=== PATIENT | male | born 1955 | race Caucasian/White ===

== ENCOUNTER 2022-05-25 17:06 | Inpatient (IN) | payer BC ==
[~2022-05-25] VITALS: Ht 195.6 cm; Wt 120.7 kg
[2022-05-25 17:45] VITALS: BP_SYST 154
[2022-05-25] MEDS ORDERED: KETOROLAC TROMETHAMINE 30 MG VIAL IVP ONE (18:30)
[2022-05-25] MEDS ORDERED: guaiFENesin/DEXTROMETHORPHAN 10 ML UDC PO ONE (18:30)
[2022-05-25] MEDS ORDERED: NACL 0.9% 1,000 ML IV ONE ×2 (18:30→21:15)
[2022-05-25] MEDS ORDERED: DEXAMETHASONE SOD PHOSPHATE 10 MG/ML VIAL IVP ONE (18:30)
[2022-05-25 19:09] LABS: BASOPHILS % (AUTO) 0.4 % (0.0-2.0); EOSINOPHILS % (AUTO) 0.1 % (0.0-4.0); HEMATOCRIT 52.4 % (36-54); HEMOGLOBIN 17.7 g/dL (14.0-18.0); LYMPHOCYTES # (AUTO) 0.8 K/uL (1.0-5.5); LYMPHOCYTES % (AUTO) 15.9 % (20.5-51.5); MEAN CORPUSCULAR HEMOGLOBIN 37 pg (27-31); MEAN CORPUSCULAR HGB CONC 34 % (32-36); MEAN CORPUSCULAR VOLUME 110 fL (79.0-98.0); MONOCYTES # (AUTO) 0.6 K/uL (0.0-1.0); MONOCYTES % (AUTO) 12.2 % (1.7-9.3); NEUTROPHILS # (AUTO) 3.4 K/uL (1.8-7.7); NEUTROPHILS % (AUTO) 71.4 % (40.0-70.0); RED BLOOD CELL COUNT(AUTO) 4.79 MIL/uL (4.2-6.2); RED CELL DISTRIBUTION WIDTH 14.1 % (9.0-15.0); WHITE BLOOD COUNT (AUTO) 4.8 K/uL (4.8-10.8)
[2022-05-25 19:18] LABS: ANION GAP 10 (5-15); CALCIUM 9.2 mg/dL (8.4-11.0); CHLORIDE 100 mmol/L (98-107); CREATININE 0.91 mg/dL (0.55-1.30); GLUCOSE 159 mg/dL (70-99); UREA NITROGEN, BLOOD 20 mg/dL (8-21)
[2022-05-25 19:27] LABS: ALANINE AMINOTRANSFERASE 29 U/L (12-78); ALBUMIN 3.9 g/dL (3.4-4.8); ASPARTATE AMINOTRANSFERASE 28 U/L (10-37); PLATELET COUNT (AUTO) 94 K/uL (130-430); TOTAL BILIRUBIN 2.3 mg/dL (0.0-1.0)
[2022-05-25 19:28] LABS: GFR AFRICAN AMERICAN 107 mL/min (>90)
[2022-05-25] MEDS ORDERED: AZITHROMYCIN 500 MG in NS 250 ML IV ONE (21:00)
[2022-05-25] MEDS ORDERED: cefTRIAXone 1 GM in D5W 50 ML IV ONE (21:00)
[2022-05-25] MEDS ORDERED: cefTRIAXone 1 GM VIAL ONE (21:17)
[2022-05-25] MEDS ORDERED: AZITHROMYCIN 500 MG/VIAL (ZITHROMAX) IV ONE (21:17)
[2022-05-25] MEDS ORDERED: DEXAMETHASONE SOD PHOSPHATE 10 MG/ML VIAL ONE (21:17)
[2022-05-25] MEDS ORDERED: KETOROLAC TROMETHAMINE 30 MG VIAL ONE (21:18)
[2022-05-25] MEDS ORDERED: guaiFENesin/DEXTROMETHORPHAN 10 ML UDC ONE (21:34)
[2022-05-25] MEDS ORDERED: LORazepam 2 MG/ML VIAL IVP PRN (23:45)
[2022-05-25] MEDS ORDERED: HYDROcodone/ACETAMIN 10-325 MG TAB PO PRN (23:45)
[2022-05-25] MEDS ORDERED: ACETAMINOPHEN 325 MG TABLET PO PRN (23:45)
[2022-05-25] MEDS ORDERED: NALOXONE HCL 0.4 MG/ML AMP (NARCAN) IVP PRN ×2 (23:45)
[2022-05-25] MEDS ORDERED: ONDANSETRON HCL 4 MG/2 ML VIAL IVP PRN (23:45)
[2022-05-25] MEDS ORDERED: HYDROcodone/ACETAMIN 5-325 MG TAB (NORCO/ VICODIN) PO PRN (23:45)
[2022-05-25 23:50] VITALS: BP_SYST 146
[2022-05-26] MEDS: ALBUTEROL SULFATE 0.083% 2.5 MG/3 ML VIAL.NEB INH SCH ×6 (03:26→23:00)
[2022-05-26] MEDS: IPRATROPIUM BROM 0.5 MG/2.5 ML VIAL.NEB (ATROVENT) INH SCH ×6 (03:27→23:00)
[2022-05-26 05:20] VITALS: BP_SYST 144
[2022-05-26] MEDS ORDERED: NORMAL SALINE 5 ML DISP.SYRIN IVF SCH (06:00)
[2022-05-26] MEDS: NORMAL SALINE 5 ML DISP.SYRIN IVF SCH ×3 (06:00→20:58)
[2022-05-26 08:00] VITALS: BP_SYST 144
[2022-05-26 08:11] LABS: BASOPHILS % (AUTO) 0.2 % (0.0-2.0); HEMATOCRIT 48.4 % (36-54); HEMOGLOBIN 16.3 g/dL (14.0-18.0); LYMPHOCYTES # (AUTO) 0.4 K/uL (1.0-5.5); LYMPHOCYTES % (AUTO) 14.7 % (20.5-51.5); MEAN CORPUSCULAR HEMOGLOBIN 37 pg (27-31); MEAN CORPUSCULAR HGB CONC 34 % (32-36); MEAN CORPUSCULAR VOLUME 111 fL (79.0-98.0); MONOCYTES # (AUTO) 0.1 K/uL (0.0-1.0); MONOCYTES % (AUTO) 3.9 % (1.7-9.3); NEUTROPHILS # (AUTO) 2.1 K/uL (1.8-7.7); NEUTROPHILS % (AUTO) 81.2 % (40.0-70.0); PLATELET COUNT (AUTO) 86 K/uL (130-430); RED BLOOD CELL COUNT(AUTO) 4.38 MIL/uL (4.2-6.2); WHITE BLOOD COUNT (AUTO) 2.6 K/uL (4.8-10.8)
[2022-05-26 08:31] LABS: CALCIUM 8.6 mg/dL (8.4-11.0); CREATININE 0.64 mg/dL (0.55-1.30); PHOSPHORUS 3.3 mg/dL (2.7-4.5)
[2022-05-26 11:38] VITALS: BP_SYST 140
[2022-05-26] MEDS ORDERED: BUDESONIDE 0.5 MG/2 ML AMPUL.NEB INH ONE (14:00)
[2022-05-26 15:38] VITALS: BP_SYST 124
[2022-05-26] MEDS: BUDESONIDE 0.5 MG/2 ML AMPUL.NEB INH SCH (19:00)
[2022-05-26 20:00] VITALS: BP_SYST 121
[2022-05-26] MEDS: DILTIAZEM HCL 30 MG TABLET PO PRN (20:44)
[2022-05-26] MEDS: cefTRIAXone 1 GM IVPB PREMIX 50 ML IV SCH (20:46)
[2022-05-26] MEDS: INSULIN REGULAR, HUMAN 100 UNITS/ML, 3 ML VIAL (humuLIN R) SUBCUT PRN (20:56)
[2022-05-26] MEDS: methylPREDNISolone SOD SUCC/PF 62.5 MG/ML VIAL IVP SCH (20:57)
[2022-05-26] MEDS: AZITHROMYCIN 500 MG in NS 250 ML IV SCH (21:08)
[2022-05-27 00:31] VITALS: BP_SYST 129
[2022-05-27] MEDS: DILTIAZEM HCL 30 MG TABLET PO PRN ×2 (01:52→08:09)
[2022-05-27] MEDS: ALBUTEROL SULFATE 0.083% 2.5 MG/3 ML VIAL.NEB INH SCH ×7 (03:00→23:05)
[2022-05-27] MEDS: IPRATROPIUM BROM 0.5 MG/2.5 ML VIAL.NEB (ATROVENT) INH SCH ×6 (03:00→23:06)
[2022-05-27] MEDS: NORMAL SALINE 5 ML DISP.SYRIN IVF SCH ×3 (05:40→20:48)
[2022-05-27] MEDS: INSULIN REGULAR, HUMAN 100 UNITS/ML, 3 ML VIAL (humuLIN R) SUBCUT PRN ×4 (05:45→20:51)
[2022-05-27] MEDS: methylPREDNISolone SOD SUCC/PF 62.5 MG/ML VIAL IVP SCH ×2 (05:50→18:25)
[2022-05-27 07:20] LABS: BASOPHILS % (AUTO) 0.1 % (0.0-2.0); HEMATOCRIT 44.3 % (36-54); HEMOGLOBIN 15.1 g/dL (14.0-18.0); LYMPHOCYTES # (AUTO) 0.5 K/uL (1.0-5.5); LYMPHOCYTES % (AUTO) 13.9 % (20.5-51.5); MEAN CORPUSCULAR HEMOGLOBIN 38 pg (27-31); MEAN CORPUSCULAR HGB CONC 34 % (32-36); MEAN CORPUSCULAR VOLUME 110 fL (79.0-98.0); MONOCYTES # (AUTO) 0.2 K/uL (0.0-1.0); MONOCYTES % (AUTO) 4.8 % (1.7-9.3); NEUTROPHILS # (AUTO) 2.7 K/uL (1.8-7.7); NEUTROPHILS % (AUTO) 81.2 % (40.0-70.0); PLATELET COUNT (AUTO) 91 K/uL (130-430); RED BLOOD CELL COUNT(AUTO) 4.02 MIL/uL (4.2-6.2); RED CELL DISTRIBUTION WIDTH 13.6 % (9.0-15.0)
[2022-05-27 07:23] LABS: C-REACTIVE PROTEIN QUANT 3.4 mg/dL (0-0.5); CALCIUM 8.3 mg/dL (8.4-11.0); CREATININE 0.62 mg/dL (0.55-1.30)
[2022-05-27] MEDS: BUDESONIDE 0.5 MG/2 ML AMPUL.NEB INH SCH ×2 (07:32→21:15)
[2022-05-27 07:47] LABS: WHITE BLOOD COUNT (AUTO) 3.4 K/uL (4.8-10.8)
[2022-05-27 07:56] VITALS: BP_SYST 136
[2022-05-27 08:27] LABS: ERYTHROCYTE SEDIMENTATION RATE 18 MM/HR (0-15)
[2022-05-27] MEDS ORDERED: dilTIAZem HCL IVP 5 MG/ML VIAL IVP ONE (11:15)
[2022-05-27 11:23] VITALS: BP_SYST 130
[2022-05-27] MEDS ORDERED: FUROSEMIDE 20 MG/2 ML VIAL IVP ONE (11:30)
[2022-05-27] MEDS ORDERED: METOPROLOL SUCCINATE 50 MG TAB.SR.24H (TOPROL XL) PO ONE (13:00)
[2022-05-27 15:26] VITALS: BP_SYST 141
[2022-05-27] MEDS ORDERED: ISOSORBIDE MONONITRATE 30 MG TAB.ER.24H PO ONE (16:00)
[2022-05-27] MEDS ORDERED: traZODone HCL 50 MG TABLET (DESYREL) PO PRN (19:30)
[2022-05-27 20:00] VITALS: BP_SYST 121
[2022-05-27] MEDS: cefTRIAXone 1 GM IVPB PREMIX 50 ML IV SCH (20:44)
[2022-05-27] MEDS: DILTIAZEM HCL 120 MG CAP.SR.24H PO SCH (20:48)
[2022-05-27] MEDS: AZITHROMYCIN 500 MG in NS 250 ML IV SCH (20:55)
[2022-05-28 01:00] VITALS: BP_SYST 138
[2022-05-28] MEDS: ALBUTEROL SULFATE 0.083% 2.5 MG/3 ML VIAL.NEB INH SCH ×5 (03:06→21:04)
[2022-05-28] MEDS: IPRATROPIUM BROM 0.5 MG/2.5 ML VIAL.NEB (ATROVENT) INH SCH ×5 (03:06→21:04)
[2022-05-28] MEDS: INSULIN REGULAR, HUMAN 100 UNITS/ML, 3 ML VIAL (humuLIN R) SUBCUT PRN ×4 (05:57→21:28)
[2022-05-28] MEDS: NORMAL SALINE 5 ML DISP.SYRIN IVF SCH ×3 (06:01→21:32)
[2022-05-28] MEDS: methylPREDNISolone SOD SUCC/PF 62.5 MG/ML VIAL IVP SCH ×2 (06:01→21:07)
[2022-05-28 06:54] LABS: C-REACTIVE PROTEIN QUANT 1.3 mg/dL (0-0.5); CALCIUM 8.4 mg/dL (8.4-11.0); CREATININE 0.79 mg/dL (0.55-1.30)
[2022-05-28 07:05] LABS: HEMATOCRIT 40.6 % (36-54); LYMPHOCYTES # (AUTO) 0.4 K/uL (1.0-5.5); LYMPHOCYTES % (AUTO) 12.1 % (20.5-51.5); MEAN CORPUSCULAR HEMOGLOBIN 38 pg (27-31); MEAN CORPUSCULAR HGB CONC 35 % (32-36); MEAN CORPUSCULAR VOLUME 109 fL (79.0-98.0); MONOCYTES # (AUTO) 0.2 K/uL (0.0-1.0); MONOCYTES % (AUTO) 5.2 % (1.7-9.3); NEUTROPHILS % (AUTO) 82.7 % (40.0-70.0); PLATELET COUNT (AUTO) 95 K/uL (130-430); RED BLOOD CELL COUNT(AUTO) 3.71 MIL/uL (4.2-6.2); RED CELL DISTRIBUTION WIDTH 13.5 % (9.0-15.0); WHITE BLOOD COUNT (AUTO) 3.7 K/uL (4.8-10.8)
[2022-05-28] MEDS: BUDESONIDE 0.5 MG/2 ML AMPUL.NEB INH SCH ×2 (07:12→21:05)
[2022-05-28 07:40] VITALS: BP_SYST 120
[2022-05-28] MEDS: ISOSORBIDE MONONITRATE 30 MG TAB.ER.24H PO SCH (08:22)
[2022-05-28] MEDS: DILTIAZEM HCL 120 MG CAP.SR.24H PO SCH ×2 (08:22→21:06)
[2022-05-28] MEDS: METOPROLOL SUCCINATE 50 MG TAB.SR.24H (TOPROL XL) PO SCH (08:22)
[2022-05-28 08:51] LABS: ERYTHROCYTE SEDIMENTATION RATE 16 MM/HR (0-15)
[2022-05-28 09:31] VITALS: BP_SYST 120
[2022-05-28 11:40] VITALS: BP_SYST 109
[2022-05-28] MEDS ORDERED: DOCUSATE SODIUM 100 MG CAPSULE PO ONE (15:00)
[2022-05-28 15:02] VITALS: BP_SYST 105
[2022-05-28 19:53] VITALS: BP_SYST 124
[2022-05-28] MEDS: cefTRIAXone 1 GM IVPB PREMIX 50 ML IV SCH (21:03)
[2022-05-28] MEDS: DOCUSATE SODIUM 100 MG CAPSULE PO SCH (21:07)
[2022-05-28] MEDS: AZITHROMYCIN 500 MG in NS 250 ML IV SCH (21:31)
[2022-05-29] MEDS: ALBUTEROL SULFATE 0.083% 2.5 MG/3 ML VIAL.NEB INH SCH ×7 (01:45→23:00)
[2022-05-29] MEDS: IPRATROPIUM BROM 0.5 MG/2.5 ML VIAL.NEB (ATROVENT) INH SCH ×7 (01:45→23:00)
[2022-05-29 04:28] VITALS: BP_SYST 140
[2022-05-29] MEDS: NORMAL SALINE 5 ML DISP.SYRIN IVF SCH ×2 (06:07→16:05)
[2022-05-29] MEDS: INSULIN REGULAR, HUMAN 100 UNITS/ML, 3 ML VIAL (humuLIN R) SUBCUT PRN ×2 (06:50→17:18)
[2022-05-29 06:59] LABS: HEMATOCRIT 43.8 % (36-54); HEMOGLOBIN 15.1 g/dL (14.0-18.0); LYMPHOCYTES # (AUTO) 0.4 K/uL (1.0-5.5); LYMPHOCYTES % (AUTO) 11.1 % (20.5-51.5); MEAN CORPUSCULAR HEMOGLOBIN 38 pg (27-31); MEAN CORPUSCULAR HGB CONC 35 % (32-36); MEAN CORPUSCULAR VOLUME 109 fL (79.0-98.0); MONOCYTES # (AUTO) 0.2 K/uL (0.0-1.0); MONOCYTES % (AUTO) 5.1 % (1.7-9.3); NEUTROPHILS # (AUTO) 3.3 K/uL (1.8-7.7); PLATELET COUNT (AUTO) 101 K/uL (130-430); RED BLOOD CELL COUNT(AUTO) 4.02 MIL/uL (4.2-6.2); RED CELL DISTRIBUTION WIDTH 13.8 % (9.0-15.0)
[2022-05-29 07:35] LABS: ALBUMIN 3.2 g/dL (3.4-4.8); C-REACTIVE PROTEIN QUANT 0.3 mg/dL (0-0.5); CALCIUM 9.1 mg/dL (8.4-11.0); CREATININE 0.95 mg/dL (0.55-1.30); PHOSPHORUS 3.6 mg/dL (2.7-4.5); TOTAL BILIRUBIN 1.1 mg/dL (0.0-1.0)
[2022-05-29] MEDS: BUDESONIDE 0.5 MG/2 ML AMPUL.NEB INH SCH ×2 (07:41→20:26)
[2022-05-29 08:25] VITALS: BP_SYST 125
[2022-05-29 08:57] LABS: NEUTROPHILS % (AUTO) 83.8 % (40.0-70.0)
[2022-05-29] MEDS: DOCUSATE SODIUM 100 MG CAPSULE PO SCH ×2 (09:00→09:32)
[2022-05-29] MEDS: methylPREDNISolone SOD SUCC/PF 62.5 MG/ML VIAL IVP SCH (09:30)
[2022-05-29] MEDS: ISOSORBIDE MONONITRATE 30 MG TAB.ER.24H PO SCH (09:31)
[2022-05-29] MEDS: METOPROLOL SUCCINATE 50 MG TAB.SR.24H (TOPROL XL) PO SCH (09:31)
[2022-05-29] MEDS: DILTIAZEM HCL 120 MG CAP.SR.24H PO SCH (09:32)
[2022-05-29 10:34] LABS: ERYTHROCYTE SEDIMENTATION RATE 12 MM/HR (0-15)
[2022-05-29] MEDS ORDERED: MOXI400T30 PO (10:47)
[2022-05-29] MEDS ORDERED: ISOS30TA85 PO (10:47)
[2022-05-29] MEDS ORDERED: DILT120C89 PO (10:47)
[2022-05-29] MEDS ORDERED: DOCU-144 PO (10:47)
[2022-05-29] MEDS ORDERED: TRAZ-250 PO (10:47)
[2022-05-29] MEDS ORDERED: METO-542 PO (10:47)
[2022-05-29] MEDS ORDERED: PRED20TA PO (10:52)
[2022-05-29] MEDS ORDERED: PRED10TA PO (10:52)
[2022-05-29 11:31] VITALS: BP_SYST 130
[2022-05-29 15:38] VITALS: BP_SYST 119
[2022-05-29 20:00] VITALS: BP_SYST 138
[2022-05-29 20:06] LABS: MYCOPLASMA PNEUMONIAE IgM <770 U/mL (0-769)
[2022-05-30] MEDS: INSULIN REGULAR, HUMAN 100 UNITS/ML, 3 ML VIAL (humuLIN R) SUBCUT PRN ×2 (04:11→12:25)
[2022-05-30] MEDS: DILTIAZEM HCL 120 MG CAP.SR.24H PO SCH ×2 (04:26→09:02)
[2022-05-30] MEDS: DOCUSATE SODIUM 100 MG CAPSULE PO SCH ×2 (04:28→08:53)
[2022-05-30] MEDS: methylPREDNISolone SOD SUCC/PF 62.5 MG/ML VIAL IVP SCH ×2 (04:29→08:52)
[2022-05-30] MEDS: BUDESONIDE 0.5 MG/2 ML AMPUL.NEB INH SCH (07:00)
[2022-05-30] MEDS: IPRATROPIUM BROM 0.5 MG/2.5 ML VIAL.NEB (ATROVENT) INH SCH ×2 (07:31→11:25)
[2022-05-30] MEDS: ALBUTEROL SULFATE 0.083% 2.5 MG/3 ML VIAL.NEB INH SCH ×2 (07:31→11:25)
[2022-05-30 08:50] VITALS: BP_SYST 143
[2022-05-30] MEDS: ISOSORBIDE MONONITRATE 30 MG TAB.ER.24H PO SCH (08:52)
[2022-05-30] MEDS: METOPROLOL SUCCINATE 50 MG TAB.SR.24H (TOPROL XL) PO SCH (08:53)
[2022-05-30] MEDS: NORMAL SALINE 5 ML DISP.SYRIN IVF SCH (09:03)
[2022-05-30 12:30] VITALS: BP_SYST 130
[2022-05-30 13:45] VITALS: BP_SYST 130
[2022-05-30] MEDS ORDERED: FLU VACC QS2022-23(6MOS UP)/PF 0.5 ML/SYR SYRINGE I.M. ONE (15:00)
== END 2022-05-30 15:25 | disposition home health service (06) | DRG 193 ==
LOC: SED 17:06 → STU 21:32
PROVIDERS: ADMIT Preventive Medicine Preventive Medicine/Occupational Environmental Medicine; ATTEND Preventive Medicine Preventive Medicine/Occupational Environmental Medicine
DX: J18.9 Pneumonia, unspecified organism (principal); J96.01 Acute respiratory failure with hypoxia; J90 Pleural effusion, not elsewhere classified; J44.0 Chronic obstructive pulmonary disease with (acute) lower respiratory infection; D72.819 Decreased white blood cell count, unspecified; D69.6 Thrombocytopenia, unspecified; R73.9 Hyperglycemia, unspecified; E80.6 Other disorders of bilirubin metabolism; R53.81 Other malaise; I48.0 Paroxysmal atrial fibrillation; E88.09 Other disorders of plasma-protein metabolism, not elsewhere classified; E83.41 Hypermagnesemia; Z20.822 Contact with and (suspected) exposure to COVID-19; I25.10 Atherosclerotic heart disease of native coronary artery without angina pectoris; I10 Essential (primary) hypertension; E66.9 Obesity, unspecified; Z68.31 Body mass index [BMI] 31.0-31.9, adult; Z79.01 Long term (current) use of anticoagulants
CPT/HCPCS: 36415; 36600; 71045; 80048; 80053; 82330; 82803-TC; 83605; 83735; 83880; 84100; 84484; 85025; 85379; 85651-TC; 86140; 86738; 87040; 93005; 93306; 93970; 94640; 94760; 96365; 96367; 96375; 99291; 99292; G0378; J0456; J0696; J1100; J1815; J1885; J1940; J2060; J2930; J3490; J7050; J7613; J7626; U0003

== ENCOUNTER 2022-09-12 21:13 | Inpatient (IN) | payer BC ==
[~2022-09-12] VITALS: Ht 195.6 cm; Wt 110.2 kg
[~2022-09-12 21:13] MED LIST: DILT120C89 PO; DOCU-144 PO; ISOS30TA85 PO; METO-542 PO; MOXI400T30 PO; PRED10TA PO; PRED20TA PO; TRAZ-250 PO
[2022-09-12 21:20] VITALS: BP_SYST 133
[2022-09-12 22:30] LABS: EOSINOPHILS # (AUTO) 0.2 K/uL (0.0-0.4); EOSINOPHILS % (AUTO) 3.5 % (0.0-4.0); HEMATOCRIT 37.7 % (36-54); HEMOGLOBIN 13.2 g/dL (14.0-18.0); LYMPHOCYTES # (AUTO) 1.1 K/uL (1.0-5.5); MEAN CORPUSCULAR HEMOGLOBIN 37 pg (27-31); MEAN CORPUSCULAR HGB CONC 35 % (32-36); MEAN CORPUSCULAR VOLUME 106 fL (79.0-98.0); MONOCYTES # (AUTO) 0.8 K/uL (0.0-1.0); NEUTROPHILS # (AUTO) 3.1 K/uL (1.8-7.7); NEUTROPHILS % (AUTO) 58.5 % (40.0-70.0); PLATELET COUNT (AUTO) 165 K/uL (130-430); RED BLOOD CELL COUNT(AUTO) 3.56 MIL/uL (4.2-6.2); RED CELL DISTRIBUTION WIDTH 13.6 % (9.0-15.0); WHITE BLOOD COUNT (AUTO) 5.2 K/uL (4.8-10.8)
[2022-09-12] MEDS ORDERED: dilTIAZem HCL IVP 5 MG/ML VIAL IVP ONE (22:45)
[2022-09-12 22:47] LABS: ANION GAP 7 (5-15); CALCIUM 8.2 mg/dL (8.4-11.0); CHLORIDE 100 mmol/L (98-107); GFR AFRICAN AMERICAN 96 mL/min (>90); GLUCOSE 206 mg/dL (70-99); UREA NITROGEN, BLOOD 11 mg/dL (8-21)
[2022-09-12 22:58] LABS: ALANINE AMINOTRANSFERASE 180 U/L (12-78); ALBUMIN 2.7 g/dL (3.4-4.8); ASPARTATE AMINOTRANSFERASE 117 U/L (10-37); INR 1.1 (0.80-1.20); LIPASE 48 U/L (73-393); PROTHROMBIN TIME 11.5 SECS (9.5-12.5); TOTAL BILIRUBIN 1.7 mg/dL (0.0-1.0)
[2022-09-13] MEDS ORDERED: iohexoL 350 mgI/mL, 100 ML INFUS..BTL IV ONE (00:04)
[2022-09-13] MEDS ORDERED: LISI20TA30 PO (03:59)
[2022-09-13] MEDS ORDERED: EMPA10TA PO (03:59)
[2022-09-13] MEDS ORDERED: DILT120C89 PO (03:59)
[2022-09-13] MEDS ORDERED: GLIP10TA11 PO (03:59)
[2022-09-13 04:38] VITALS: BP_SYST 137
[2022-09-13 07:35] VITALS: BP_SYST 135
[2022-09-13 12:00] VITALS: BP_SYST 136
[2022-09-13] MEDS ORDERED: HYDROcodone/ACETAMIN 10-325 MG TAB PO PRN (13:00)
[2022-09-13] MEDS ORDERED: IPRATROPIUM BROM 0.5 MG/2.5 ML VIAL.NEB (ATROVENT) INH PRN (13:00)
[2022-09-13] MEDS ORDERED: HYDROcodone/ACETAMIN 5-325 MG TAB (NORCO/ VICODIN) PO PRN (13:00)
[2022-09-13] MEDS ORDERED: LORazepam 2 MG/ML VIAL IVP PRN (13:00)
[2022-09-13] MEDS ORDERED: ONDANSETRON HCL 4 MG/2 ML VIAL IVP PRN (13:00)
[2022-09-13] MEDS ORDERED: NALOXONE HCL 0.4 MG/ML AMP (NARCAN) IVP PRN ×2 (13:00)
[2022-09-13] MEDS ORDERED: ALBUTEROL SULFATE 0.083% 2.5 MG/3 ML VIAL.NEB INH PRN (13:00)
[2022-09-13 13:09] VITALS: BP_SYST 136
[2022-09-13] MEDS ORDERED: METOPROLOL TARTRATE 25 MG TABLET PO ONE (13:15)
[2022-09-13] MEDS ORDERED: ISOSORBIDE MONONITRATE 30 MG TAB.ER.24H PO ONE (13:15)
[2022-09-13] MEDS ORDERED: ACETAMINOPHEN 325 MG TABLET PO PRN (13:15)
[2022-09-13] MEDS ORDERED: DILTIAZEM HCL 120 MG CAP.SR.24H PO ONE (13:15)
[2022-09-13] MEDS ORDERED: EMPAGLIFLOZIN 10 MG TABLET PO ONE (13:30)
[2022-09-13] MEDS: NORMAL SALINE 5 ML DISP.SYRIN IVF SCH ×2 (13:32→22:00)
[2022-09-13] MEDS ORDERED: NORMAL SALINE 5 ML DISP.SYRIN IVF SCH (14:00)
[2022-09-13] MEDS ORDERED: RIVA20TA PO (14:29)
[2022-09-13 16:10] VITALS: BP_SYST 130
[2022-09-13] MEDS ORDERED: RIVAROXABAN 10 MG TABLET PO ONE (21:00)
[2022-09-13] MEDS: lisinopriL 20 MG TABLET PO SCH (21:01)
[2022-09-13] MEDS: METOPROLOL TARTRATE 25 MG TABLET PO SCH (21:05)
[2022-09-14 01:29] VITALS: BP_SYST 124
[2022-09-14] MEDS: NORMAL SALINE 5 ML DISP.SYRIN IVF SCH ×3 (05:40→21:37)
[2022-09-14] MEDS: ACETAMINOPHEN 325 MG TABLET PO PRN (05:40)
[2022-09-14 05:53] LABS: ALBUMIN 2.5 g/dL (3.4-4.8); CALCIUM 8.1 mg/dL (8.4-11.0); CREATININE 0.74 mg/dL (0.55-1.30); FREE T4 (FREE THYROXINE) 1.3 ng/dL (0.6-1.6); PHOSPHORUS 3.8 mg/dL (2.7-4.5); THYROID STIMULATING HORMONE 0.95 uIu/mL (0.34-4.82); TOTAL BILIRUBIN 1.2 mg/dL (0.0-1.0)
[2022-09-14 07:39] LABS: BASOPHILS % (AUTO) 0.9 % (0.0-2.0); EOSINOPHILS # (AUTO) 0.2 K/uL (0.0-0.4); EOSINOPHILS % (AUTO) 4.3 % (0.0-4.0); HEMATOCRIT 38.9 % (36-54); HEMOGLOBIN 12.9 g/dL (14.0-18.0); LYMPHOCYTES # (AUTO) 0.9 K/uL (1.0-5.5); LYMPHOCYTES % (AUTO) 19.8 % (20.5-51.5); MEAN CORPUSCULAR HEMOGLOBIN 36 pg (27-31); MEAN CORPUSCULAR HGB CONC 33 % (32-36); MEAN CORPUSCULAR VOLUME 108 fL (79.0-98.0); MONOCYTES # (AUTO) 0.8 K/uL (0.0-1.0); MONOCYTES % (AUTO) 16.9 % (1.7-9.3); NEUTROPHILS # (AUTO) 2.7 K/uL (1.8-7.7); PLATELET COUNT (AUTO) 159 K/uL (130-430); RED BLOOD CELL COUNT(AUTO) 3.61 MIL/uL (4.2-6.2); WHITE BLOOD COUNT (AUTO) 4.7 K/uL (4.8-10.8)
[2022-09-14 07:55] VITALS: BP_SYST 131
[2022-09-14 08:22] LABS: NEUTROPHILS % (AUTO) 58.1 % (40.0-70.0)
[2022-09-14] MEDS: lisinopriL 20 MG TABLET PO SCH ×2 (11:11→21:36)
[2022-09-14] MEDS: ISOSORBIDE MONONITRATE 30 MG TAB.ER.24H PO SCH (11:14)
[2022-09-14] MEDS: EMPAGLIFLOZIN 10 MG TABLET PO SCH (11:14)
[2022-09-14] MEDS: METOPROLOL TARTRATE 25 MG TABLET PO SCH ×2 (11:15→21:36)
[2022-09-14] MEDS: DILTIAZEM HCL 120 MG CAP.SR.24H PO SCH (11:15)
[2022-09-14] MEDS: INSULIN REGULAR, HUMAN 100 UNITS/ML, 3 ML VIAL (humuLIN R) SUBCUT PRN ×2 (11:53→17:23)
[2022-09-14 12:00] VITALS: BP_SYST 132
[2022-09-14] MEDS ORDERED: dilTIAZem HCL IVP 5 MG/ML VIAL IVP PRN (16:00)
[2022-09-14] MEDS ORDERED: RIVAROXABAN 10 MG TABLET PO SCH (16:00)
[2022-09-14] MEDS: RIVAROXABAN 10 MG TABLET PO SCH (17:16)
[2022-09-15 00:50] VITALS: BP_SYST 120
[2022-09-15 05:00] LABS: BASOPHILS % (AUTO) 0.7 % (0.0-2.0); EOSINOPHILS # (AUTO) 0.2 K/uL (0.0-0.4); EOSINOPHILS % (AUTO) 4.2 % (0.0-4.0); HEMATOCRIT 40.7 % (36-54); HEMOGLOBIN 13.7 g/dL (14.0-18.0); LYMPHOCYTES % (AUTO) 19.8 % (20.5-51.5); MEAN CORPUSCULAR HEMOGLOBIN 36 pg (27-31); MEAN CORPUSCULAR HGB CONC 34 % (32-36); MEAN CORPUSCULAR VOLUME 108 fL (79.0-98.0); MONOCYTES # (AUTO) 0.7 K/uL (0.0-1.0); MONOCYTES % (AUTO) 14.9 % (1.7-9.3); NEUTROPHILS % (AUTO) 60.4 % (40.0-70.0); PLATELET COUNT (AUTO) 176 K/uL (130-430); RED BLOOD CELL COUNT(AUTO) 3.79 MIL/uL (4.2-6.2); RED CELL DISTRIBUTION WIDTH 13.6 % (9.0-15.0)
[2022-09-15 05:13] LABS: CALCIUM 8.4 mg/dL (8.4-11.0); CREATININE 0.72 mg/dL (0.55-1.30)
[2022-09-15] MEDS: NORMAL SALINE 5 ML DISP.SYRIN IVF SCH ×2 (05:59→14:13)
[2022-09-15 08:00] VITALS: BP_SYST 124
[2022-09-15] MEDS: ISOSORBIDE MONONITRATE 30 MG TAB.ER.24H PO SCH (08:50)
[2022-09-15] MEDS: DILTIAZEM HCL 120 MG CAP.SR.24H PO SCH (08:50)
[2022-09-15] MEDS: METOPROLOL TARTRATE 25 MG TABLET PO SCH (08:50)
[2022-09-15] MEDS: lisinopriL 20 MG TABLET PO SCH (08:51)
[2022-09-15] MEDS: EMPAGLIFLOZIN 10 MG TABLET PO SCH (08:52)
[2022-09-15] MEDS ORDERED: METO25TA6 PO (10:59)
[2022-09-15 11:31] VITALS: BP_SYST 122
[2022-09-15] MEDS: INSULIN REGULAR, HUMAN 100 UNITS/ML, 3 ML VIAL (humuLIN R) SUBCUT PRN (12:10)
[2022-09-15 14:06] LABS: HEPATITIS A AB, IgM Negative (Negative); HEPATITIS B CORE AB, IgM Negative (Negative); HEPATITIS B SURFACE AG Negative (Negative)
[2022-09-15] MEDS: ACETAMINOPHEN 325 MG TABLET PO PRN (14:41)
[2022-09-15 17:12] VITALS: BP_SYST 112
[2022-09-15] MEDS: RIVAROXABAN 10 MG TABLET PO SCH (18:00)
[2022-09-15 18:30] VITALS: BP_SYST 124
== END 2022-09-15 18:51 | disposition home or self-care (01) | DRG 189 ==
LOC: SED 21:13 → STU 09-13 03:00
PROVIDERS: ADMIT Preventive Medicine Preventive Medicine/Occupational Environmental Medicine; ATTEND Preventive Medicine Preventive Medicine/Occupational Environmental Medicine
DX: J96.01 Acute respiratory failure with hypoxia (principal); I48.20 Chronic atrial fibrillation, unspecified; E11.65 Type 2 diabetes mellitus with hyperglycemia; I10 Essential (primary) hypertension; E83.51 Hypocalcemia; R74.01 Elevation of levels of liver transaminase levels; E80.6 Other disorders of bilirubin metabolism; E88.09 Other disorders of plasma-protein metabolism, not elsewhere classified; D64.9 Anemia, unspecified; D72.819 Decreased white blood cell count, unspecified; E83.41 Hypermagnesemia; K76.0 Fatty (change of) liver, not elsewhere classified; Z90.49 Acquired absence of other specified parts of digestive tract; Z79.01 Long term (current) use of anticoagulants
CPT/HCPCS: 36415; 36600; 71045; 71275; 76376; 80048; 80053; 80074; 82803-TC; 82962; 83690; 83735; 83880; 84100; 84439; 84443; 84484; 85025; 85379; 85610-TC; 85730-TC; 87081; 93005; 96374; 99291; G0378; J3490; Q9967

== ENCOUNTER 2023-01-01 10:45 | Inpatient (IN) | payer BC ==
[~2023-01-01] VITALS: Ht 195.6 cm; Wt 111.1 kg
[~2023-01-01 10:45] MED LIST changes: -DOCU-144 PO; +EMPA10TA PO; +GLIP10TA11 PO; +LISI20TA30 PO; -METO-542 PO; +METO25TA6 PO; -MOXI400T30 PO; -PRED10TA PO; -PRED20TA PO; +RIVA20TA PO; -TRAZ-250 PO
[2023-01-01 11:05] VITALS: BP_SYST 141; PULSE 73; RESP 20; TEMP 97.8; O2SAT 96
[2023-01-01] MEDS ORDERED: KETOROLAC TROMETHAMINE 60 MG/2 ML VIAL IM ONE (11:30)
[2023-01-01] MEDS ORDERED: HYDROcodone/ACETAMIN 10-325 MG TAB PO ONE (11:30)
[2023-01-01 12:20] LABS: BASOPHILS % (AUTO) 0.2 % (0.0-2.0); EOSINOPHILS % (AUTO) 0.4 % (0.0-4.0); HEMATOCRIT 50.9 % (36-54); LYMPHOCYTES # (AUTO) 1.1 K/uL (1.0-5.5); LYMPHOCYTES % (AUTO) 13.9 % (20.5-51.5); MEAN CORPUSCULAR HEMOGLOBIN 34 pg (27-31); MEAN CORPUSCULAR HGB CONC 33 % (32-36); MEAN CORPUSCULAR VOLUME 102 fL (79.0-98.0); MONOCYTES # (AUTO) 0.6 K/uL (0.0-1.0); NEUTROPHILS # (AUTO) 6.1 K/uL (1.8-7.7); NEUTROPHILS % (AUTO) 77.5 % (40.0-70.0); PLATELET COUNT (AUTO) 128 K/uL (130-430); RED BLOOD CELL COUNT(AUTO) 4.98 MIL/uL (4.2-6.2); RED CELL DISTRIBUTION WIDTH 14.4 % (9.0-15.0); WHITE BLOOD COUNT (AUTO) 7.8 K/uL (4.8-10.8)
[2023-01-01 12:32] LABS: ANION GAP 6 (5-15); CALCIUM 8.8 mg/dL (8.4-11.0); CARBON DIOXIDE 27 mmol/L (23-29); CHLORIDE 102 mmol/L (98-107); CREATININE 0.83 mg/dL (0.55-1.30); GFR AFRICAN AMERICAN 118 mL/min (>90); GLUCOSE 129 mg/dL (74-106); POTASSIUM 4.4 mmol/L (3.5-5.1); SODIUM SERUM 135 mmol/L (136-145); UREA NITROGEN, BLOOD 12 mg/dL (8-21)
[2023-01-01 12:34] LABS: GFR NON AFRICAN-AMERICAN 98 mL/min (>90)
[2023-01-01 12:37] LABS: BILIRUBIN,URINE NEGATIVE (NEGATIVE); BLOOD, URINE NEGATIVE (NEGATIVE); CLARITY/URINE CLEAR (CLEAR); COLOR,URINE YELLOW (YELLOW); GLUCOSE,URINE 2+ (NEGATIVE); KETONES,URINE TRACE (NEGATIVE); LEUKOCYTE ESTERASE ,URINE NEGATIVE (NEGATIVE); NITRITE, URINE NEGATIVE (NEGATIVE); PH,URINE 5.5 (5.0-8.0); PROTEIN URINE NEGATIVE (NEGATIVE); UROBILINOGEN,URINE 0.2 (0.2-1.0)
[2023-01-01 12:44] LABS: ALANINE AMINOTRANSFERASE 14 U/L (12-78); ALBUMIN 3.3 g/dL (3.4-4.8); ASPARTATE AMINOTRANSFERASE 17 U/L (10-37); CREATINE KINASE, TOTAL 30 U/L (39-308); FREE T4 (FREE THYROXINE) 1.5 ng/dL (0.6-1.6); THYROID STIMULATING HORMONE 0.94 uIu/mL (0.34-4.82); TOTAL BILIRUBIN 1.9 mg/dL (0.0-1.0); TOTAL PROTEIN, SERUM 7.2 g/dL (6.4-8.3)
[2023-01-01 12:57] LABS: ACETONE, SERUM NEGATIVE (NEGATIVE)
[2023-01-01 13:04] LABS: INR 1.4 (0.80-1.20); PROTHROMBIN TIME 14.6 SECS (9.5-12.5)
[2023-01-01 16:35] VITALS: BP_SYST 126; PULSE 101; RESP 16; TEMP 97.4; O2SAT 94
[2023-01-01 18:00] VITALS: BP_SYST 120; PULSE 103; RESP 18; TEMP 97.2; O2SAT 94
[2023-01-01] MEDS ORDERED: NALOXONE HCL 0.4 MG/ML AMP (NARCAN) IVP PRN ×2 (18:30)
[2023-01-01] MEDS ORDERED: ONDANSETRON HCL 4 MG/2 ML VIAL IVP PRN (18:30)
[2023-01-01] MEDS ORDERED: LORazepam 2 MG/ML VIAL IVP PRN (18:30)
[2023-01-01] MEDS ORDERED: ACETAMINOPHEN/CODEINE 300 MG-30 MG TABLET PO PRN (18:30)
[2023-01-01 21:00] VITALS: BP_SYST 137; PULSE 89; RESP 20; TEMP 97.5; O2SAT 96
[2023-01-01] MEDS: METOPROLOL TARTRATE 25 MG TABLET PO SCH (22:44)
[2023-01-01] MEDS: lisinopriL 20 MG TABLET PO SCH (22:45)
[2023-01-01] MEDS: RIVAROXABAN 10 MG TABLET PO SCH (22:46)
[2023-01-01] MEDS: INSULIN REGULAR, HUMAN 100 UNITS/ML, 3 ML VIAL (humuLIN R) SUBCUT PRN (22:47)
[2023-01-01] MEDS: NORMAL SALINE 5 ML DISP.SYRIN IVF SCH (22:48)
[2023-01-02 01:08] VITALS: BP_SYST 113; PULSE 90; RESP 17; TEMP 98.2; O2SAT 94
[2023-01-02 05:22] LABS: BASOPHILS % (AUTO) 0.4 % (0.0-2.0); EOSINOPHILS # (AUTO) 0.1 K/uL (0.0-0.4); EOSINOPHILS % (AUTO) 2.6 % (0.0-4.0); HEMATOCRIT 47.3 % (36-54); HEMOGLOBIN 15.9 g/dL (14.0-18.0); LYMPHOCYTES % (AUTO) 36.7 % (20.5-51.5); MEAN CORPUSCULAR HEMOGLOBIN 34 pg (27-31); MEAN CORPUSCULAR HGB CONC 34 % (32-36); MEAN CORPUSCULAR VOLUME 101 fL (79.0-98.0); MONOCYTES # (AUTO) 0.7 K/uL (0.0-1.0); MONOCYTES % (AUTO) 12.7 % (1.7-9.3); NEUTROPHILS # (AUTO) 2.5 K/uL (1.8-7.7); NEUTROPHILS % (AUTO) 47.6 % (40.0-70.0); PLATELET COUNT (AUTO) 112 K/uL (130-430); RED BLOOD CELL COUNT(AUTO) 4.67 MIL/uL (4.2-6.2); WHITE BLOOD COUNT (AUTO) 5.4 K/uL (4.8-10.8)
[2023-01-02] MEDS: NORMAL SALINE 5 ML DISP.SYRIN IVF SCH ×3 (05:43→22:30)
[2023-01-02 05:56] LABS: CALCIUM 8.5 mg/dL (8.4-11.0); CREATININE 0.74 mg/dL (0.55-1.30); POTASSIUM 3.9 mmol/L (3.5-5.1)
[2023-01-02 08:00] VITALS: BP_SYST 128; PULSE 92; RESP 15; TEMP 97.4; O2SAT 95
[2023-01-02] MEDS: EMPAGLIFLOZIN 10 MG TABLET PO SCH (09:12)
[2023-01-02] MEDS: DILTIAZEM HCL 120 MG CAP.SR.24H PO SCH (09:13)
[2023-01-02] MEDS: METOPROLOL TARTRATE 25 MG TABLET PO SCH ×2 (09:13→22:27)
[2023-01-02] MEDS: ISOSORBIDE MONONITRATE 30 MG TAB.ER.24H PO SCH (09:13)
[2023-01-02] MEDS: lisinopriL 20 MG TABLET PO SCH ×2 (09:14→22:28)
[2023-01-02] MEDS: OXYCODONE/ACETAMINOPHEN 5-325 TABLET PO PRN ×2 (10:25→18:42)
[2023-01-02 11:56] VITALS: O2SAT 96
[2023-01-02 12:00] VITALS: BP_SYST 96; PULSE 72; RESP 16; TEMP 96.4; O2SAT 95
[2023-01-02 16:00] VITALS: BP_SYST 103; PULSE 83; RESP 15; TEMP 97.2; O2SAT 96
[2023-01-02 21:00] VITALS: BP_SYST 139; PULSE 84; RESP 16; TEMP 98.2; O2SAT 95
[2023-01-02] MEDS: RIVAROXABAN 10 MG TABLET PO SCH (22:24)
[2023-01-02] MEDS: INSULIN REGULAR, HUMAN 100 UNITS/ML, 3 ML VIAL (humuLIN R) SUBCUT PRN (22:25)
[2023-01-02] MEDS: HYDROcodone/ACETAMIN 5-325 MG TAB (NORCO/ VICODIN) PO PRN (22:26)
[2023-01-03] VITALS (7 sets, daily range): BP systolic 113–137; PULSE 86–101; RESP 16–20; TEMP 97.3–98.6; O2SAT 90–97
[2023-01-03] MEDS: NORMAL SALINE 5 ML DISP.SYRIN IVF SCH (06:45)
[2023-01-03 07:31] LABS: BASOPHILS % (AUTO) 0.4 % (0.0-2.0); EOSINOPHILS # (AUTO) 0.2 K/uL (0.0-0.4); EOSINOPHILS % (AUTO) 3.4 % (0.0-4.0); HEMOGLOBIN 15.6 g/dL (14.0-18.0); LYMPHOCYTES # (AUTO) 1.8 K/uL (1.0-5.5); LYMPHOCYTES % (AUTO) 35.1 % (20.5-51.5); MEAN CORPUSCULAR HEMOGLOBIN 34 pg (27-31); MEAN CORPUSCULAR HGB CONC 33 % (32-36); MEAN CORPUSCULAR VOLUME 103 fL (79.0-98.0); MONOCYTES # (AUTO) 0.6 K/uL (0.0-1.0); MONOCYTES % (AUTO) 10.5 % (1.7-9.3); NEUTROPHILS # (AUTO) 2.7 K/uL (1.8-7.7); NEUTROPHILS % (AUTO) 50.6 % (40.0-70.0); PLATELET COUNT (AUTO) 108 K/uL (130-430); RED BLOOD CELL COUNT(AUTO) 4.56 MIL/uL (4.2-6.2); RED CELL DISTRIBUTION WIDTH 14.2 % (9.0-15.0); WHITE BLOOD COUNT (AUTO) 5.3 K/uL (4.8-10.8)
[2023-01-03 07:58] LABS: CALCIUM 8.5 mg/dL (8.4-11.0); CREATININE 0.74 mg/dL (0.55-1.30)
[2023-01-03] MEDS: HYDROcodone/ACETAMIN 5-325 MG TAB (NORCO/ VICODIN) PO PRN (09:03)
[2023-01-03] MEDS: DILTIAZEM HCL 120 MG CAP.SR.24H PO SCH (09:04)
[2023-01-03] MEDS: ISOSORBIDE MONONITRATE 30 MG TAB.ER.24H PO SCH (09:04)
[2023-01-03] MEDS: METOPROLOL TARTRATE 25 MG TABLET PO SCH (09:04)
[2023-01-03] MEDS: EMPAGLIFLOZIN 10 MG TABLET PO SCH (09:05)
[2023-01-03] MEDS: lisinopriL 20 MG TABLET PO SCH (09:05)
[2023-01-03] MEDS ORDERED: HYDR-3927 PO (14:02)
[2023-01-03] MEDS ORDERED: PERC10 PO (14:02)
== END 2023-01-03 14:30 | disposition home or self-care (01) | DRG 552 ==
LOC: SED 10:45 → SMU 14:40
PROVIDERS: ADMIT Preventive Medicine Preventive Medicine/Occupational Environmental Medicine; ATTEND Preventive Medicine Preventive Medicine/Occupational Environmental Medicine
DX: S22.080A Wedge compression fracture of T11-T12 vertebra, initial encounter for closed fracture (principal); E87.1 Hypo-osmolality and hyponatremia; M51.36 Other intervertebral disc degeneration, lumbar region; I10 Essential (primary) hypertension; I48.91 Unspecified atrial fibrillation; E11.65 Type 2 diabetes mellitus with hyperglycemia; R53.81 Other malaise; X58.XXXA Exposure to other specified factors, initial encounter; D69.6 Thrombocytopenia, unspecified; E88.09 Other disorders of plasma-protein metabolism, not elsewhere classified; E80.6 Other disorders of bilirubin metabolism; Z79.01 Long term (current) use of anticoagulants; Z79.899 Other long term (current) drug therapy; Y93.89 Activity, other specified; Y92.89 Other specified places as the place of occurrence of the external cause; Y99.8 Other external cause status
CPT/HCPCS: 36415; 71045; 72131; 76376; 80048; 80053; 81003; 82009; 82550; 82962; 83605; 84439; 84443; 84484; 85025; 85610-TC; 85730-TC; 93005; 97116-GP; J1885

== ENCOUNTER 2023-04-21 07:53 | Outpatient (CLI) | payer BC, OTHER ==
[~2023-04-21 07:53] MED LIST changes: +HYDR-3927 PO; +PERC10 PO
[2023-04-21 08:20] LABS: BASOPHILS % (AUTO) 0.6 % (0.0-2.0); EOSINOPHILS # (AUTO) 0.1 K/uL (0.0-0.4); EOSINOPHILS % (AUTO) 1.5 % (0.0-4.0); HEMATOCRIT 48.9 % (36-54); HEMOGLOBIN 16.3 g/dL (14.0-18.0); LYMPHOCYTES % (AUTO) 23.7 % (20.5-51.5); MEAN CORPUSCULAR HEMOGLOBIN 36 pg (27-31); MEAN CORPUSCULAR HGB CONC 33 % (32-36); MEAN CORPUSCULAR VOLUME 107 fL (79.0-98.0); MONOCYTES # (AUTO) 0.6 K/uL (0.0-1.0); MONOCYTES % (AUTO) 13.5 % (1.7-9.3); NEUTROPHILS # (AUTO) 2.7 K/uL (1.8-7.7); NEUTROPHILS % (AUTO) 60.7 % (40.0-70.0); PLATELET COUNT (AUTO) 109 K/uL (130-430); RED BLOOD CELL COUNT(AUTO) 4.57 MIL/uL (4.2-6.2); RED CELL DISTRIBUTION WIDTH 14.8 % (9.0-15.0); WHITE BLOOD COUNT (AUTO) 4.4 K/uL (4.8-10.8)
[2023-04-21 08:39] LABS: CREATININE 0.83 mg/dL (0.55-1.30); POTASSIUM 4.2 mmol/L (3.5-5.1)
== END 2023-04-21 18:29 | disposition home or self-care (01) ==
LOC: SLB 07:53
DX: Z01.812 Encounter for preprocedural laboratory examination (principal)
CPT/HCPCS: 36415; 80048; 85025

== ENCOUNTER 2023-08-25 18:02 | Emergency (ER) | payer BC, OTHER ==
[~2023-08-25] VITALS: Ht 195.6 cm; Wt 117.0 kg
[2023-08-25 18:13] VITALS: BP_SYST 141; PULSE 81; RESP 18; TEMP 98.3; O2SAT 95
[2023-08-25] MEDS ORDERED: LIDOCAINE 1%, 20 ML MDV 20 ML ONE (22:37)
[2023-08-25] MEDS ORDERED: BACITRACIN 1 GM OINT TP ONE (22:51)
[2023-08-25] MEDS ORDERED: KETO200T59 PO (22:54)
[2023-08-25] MEDS ORDERED: CEPH-548 PO (22:54)
[2023-08-25] MEDS: LIDOCAINE 1% 10 MG/ML, 20 ML MDV INJ ONE (23:00)
[2023-08-25 23:06] VITALS: BP_SYST 141; PULSE 81; RESP 18; TEMP 98.3; O2SAT 95
== END 2023-08-25 23:07 | disposition home or self-care (01) ==
LOC: SED 18:02
DX: S91.209A Unspecified open wound of unspecified toe(s) with damage to nail, initial encounter (principal); L03.032 Cellulitis of left toe; E11.9 Type 2 diabetes mellitus without complications; I10 Essential (primary) hypertension; I48.91 Unspecified atrial fibrillation; X58.XXXA Exposure to other specified factors, initial encounter; Y93.89 Activity, other specified; Y92.89 Other specified places as the place of occurrence of the external cause; Y99.8 Other external cause status
CPT/HCPCS: 99284; J2001

== ENCOUNTER 2024-03-20 23:37 | Inpatient (IN) | payer BC, OTHER ==
[~2024-03-20] VITALS: Ht 195.6 cm; Wt 129.0 kg
[~2024-03-20 23:37] MED LIST changes: +CEPH-548 PO; +KETO200T59 PO
[2024-03-20 23:43] VITALS: BP_SYST 135; PULSE 84; RESP 18; TEMP 97.3; O2SAT 90
[2024-03-21] VITALS (12 sets, daily range): BP systolic 113–128; PULSE 77–102; RESP 12–20; TEMP 97.8–98.4; O2SAT 92–95
[2024-03-21] MEDS: ALBUTEROL SULFATE 0.083% 2.5 MG/3 ML VIAL.NEB INH ONE (00:15)
[2024-03-21 00:28] LABS: ABG O2 SAT% ESTIMATE 89.8 % (94.0-98.0); ALLEN'S TEST POSITIVE (P); BLOOD GAS BASE EXCESS -0.6 mmol/L (-2.0-3.0); BLOOD GAS HCO3 23.6 mmol/L (21.0-28.0); BLOOD GAS PCO2 37.6 mmHg (35.0-48.0); BLOOD GAS PH 7.415 (7.350-7.450); BLOOD GAS PO2 56.2 mmHg (83.0-108.0)
[2024-03-21] MEDS: cefTRIAXone 1 GM IVPB PREMIX 50 ML IV ONE (01:34)
[2024-03-21 01:45] LABS: BASOPHILS % (AUTO) 0.3 % (0.0-2.0); EOSINOPHILS # (AUTO) 0.1 K/uL (0.0-0.4); EOSINOPHILS % (AUTO) 1.2 % (0.0-4.0); HEMATOCRIT 43.2 % (36-54); HEMOGLOBIN 15.2 g/dL (14.0-18.0); LYMPHOCYTES # (AUTO) 0.6 K/uL (1.0-5.5); LYMPHOCYTES % (AUTO) 11.1 % (20.5-51.5); MEAN CORPUSCULAR HEMOGLOBIN 39 pg (27-31); MEAN CORPUSCULAR HGB CONC 35 % (32-36); MEAN CORPUSCULAR VOLUME 110 fL (79.0-98.0); MONOCYTES # (AUTO) 0.7 K/uL (0.0-1.0); MONOCYTES % (AUTO) 11.7 % (1.7-9.3); NEUTROPHILS # (AUTO) 4.2 K/uL (1.8-7.7); NEUTROPHILS % (AUTO) 75.7 % (40.0-70.0); PLATELET COUNT (AUTO) 102 K/uL (130-430); RED BLOOD CELL COUNT(AUTO) 3.94 MIL/uL (4.2-6.2); RED CELL DISTRIBUTION WIDTH 14.7 % (9.0-15.0); WHITE BLOOD COUNT (AUTO) 5.6 K/uL (4.8-10.8)
[2024-03-21 02:13] LABS: ALBUMIN 3.2 g/dL (3.4-4.8); BILIRUBIN,DIRECT 0.5 mg/dL (0.0-0.3); CALCIUM 8.4 mg/dL (8.4-11.0); CREATININE 0.84 mg/dL (0.55-1.30); POTASSIUM 4.1 mmol/L (3.5-5.1); TOTAL BILIRUBIN 3.3 mg/dL (0.0-1.0); TOTAL PROTEIN, SERUM 6.7 g/dL (6.4-8.3)
[2024-03-21 02:57] LABS: BILIRUBIN,URINE NEGATIVE (NEGATIVE); CLARITY/URINE CLEAR (CLEAR); COLOR,URINE YELLOW (YELLOW); GLUCOSE,URINE 3+ (NEGATIVE); KETONES,URINE TRACE (NEGATIVE); LEUKOCYTE ESTERASE ,URINE NEGATIVE (NEGATIVE); NITRITE, URINE NEGATIVE (NEGATIVE); PROTEIN URINE NEGATIVE (NEGATIVE)
[2024-03-21 03:08] LABS: BLOOD, URINE NEGATIVE (NEGATIVE)
[2024-03-21] MEDS ORDERED: AZITHROMYCIN 500 MG/VIAL (ZITHROMAX) IV ONE (03:11)
[2024-03-21] MEDS: AZITHROMYCIN 500 MG in NS 250 ML IV ONE (03:19)
[2024-03-21] MEDS ORDERED: AZITHROMYCIN 250 MG TABLET PO ONE (09:30)
[2024-03-21] MEDS ORDERED: ONDANSETRON HCL 4 MG/2 ML VIAL IVP PRN (10:30)
[2024-03-21] MEDS ORDERED: LORazepam 2 MG/ML VIAL IVP PRN (10:30)
[2024-03-21] MEDS ORDERED: HYDROcodone/ACETAMIN 10-325 MG TAB PO PRN (10:30)
[2024-03-21] MEDS ORDERED: HYDROcodone/ACETAMIN 5-325 MG TAB (NORCO/ VICODIN) PO PRN (10:30)
[2024-03-21] MEDS ORDERED: ACETAMINOPHEN 325 MG TABLET PO PRN (10:30)
[2024-03-21] MEDS ORDERED: NALOXONE HCL 0.4 MG/ML AMP (NARCAN) IVP PRN ×2 (10:30)
[2024-03-21] MEDS: ALBUTEROL SULFATE 0.083% 2.5 MG/3 ML VIAL.NEB INH SCH (11:18)
[2024-03-21] MEDS: IPRATROPIUM BROM 0.5 MG/2.5 ML VIAL.NEB (ATROVENT) INH SCH (11:19)
[2024-03-21] MEDS: ISOSORBIDE MONONITRATE 30 MG TAB.ER.24H PO ONE (12:07)
[2024-03-21] MEDS: DILTIAZEM HCL 120 MG CAP.SR.24H PO ONE (12:08)
[2024-03-21] MEDS: EMPAGLIFLOZIN 10 MG TABLET PO ONE (12:46)
[2024-03-21] MEDS: cefTRIAXone 1 GM in D5W 50 ML IV SCH (12:46)
[2024-03-21] MEDS: NORMAL SALINE 5 ML DISP.SYRIN IVF SCH (14:08)
[2024-03-21 14:40] LABS: HEMATOCRIT 41.2 % (36-54); HEMOGLOBIN 14.6 g/dL (14.0-18.0); MEAN CORPUSCULAR HEMOGLOBIN 39 pg (27-31); MEAN CORPUSCULAR HGB CONC 35 % (32-36); MEAN CORPUSCULAR VOLUME 109 fL (79.0-98.0); PLATELET COUNT (AUTO) 93 K/uL (130-430); RED BLOOD CELL COUNT(AUTO) 3.78 MIL/uL (4.2-6.2); RED CELL DISTRIBUTION WIDTH 14.6 % (9.0-15.0); WHITE BLOOD COUNT (AUTO) 5.6 K/uL (4.8-10.8)
[2024-03-21 15:04] LABS: ALBUMIN 3.1 g/dL (3.4-4.8); CALCIUM 8.3 mg/dL (8.4-11.0); CREATININE 0.83 mg/dL (0.55-1.30); POTASSIUM 4.4 mmol/L (3.5-5.1); TOTAL BILIRUBIN 2.7 mg/dL (0.0-1.0); TOTAL PROTEIN, SERUM 6.4 g/dL (6.4-8.3)
[2024-03-21 15:18] LABS: ANISOCYTOSIS 1+; ATYPICAL LYMPHOCYTES % 1 % (0-0); BAND % (MANUAL) 4 % (0-6); BASOPHILS % (MANUAL) 0 % (0-2); EOSINOPHILS % (MANUAL) 2 % (0-7); LYMPHOCYTES % (MANUAL) 10 % (20-46); MONOCYTES % (MANUAL) 14 % (0-11); PLATELET ESTIMATE DECREASED (ADEQUATE); WBC MORPHOLOGY TOXIC VACUOLATION
[2024-03-21] MEDS: RIVAROXABAN 10 MG TABLET PO SCH (17:35)
[2024-03-21 18:11] LABS: COVID19 ANTIGEN SOFIA FIA NEGATIVE (NEGATIVE)
[2024-03-21 18:16] LABS: INFLUENZA TYPE A Negative (NEGATIVE); INFLUENZA TYPE B NEGATIVE (NEGATIVE)
[2024-03-21] MEDS: METHYLPREDNISOLONE SOD SUCC 40 MG/ML VIAL IVP SCH (20:45)
[2024-03-21] MEDS: METOPROLOL TARTRATE 25 MG TABLET PO SCH (20:46)
[2024-03-21] MEDS: lisinopriL 20 MG TABLET PO SCH (20:46)
[2024-03-21] MEDS: INSULIN REGULAR, HUMAN 100 UNITS/ML, 3 ML VIAL (humuLIN R) SUBCUT PRN (20:57)
[2024-03-22] VITALS (11 sets, daily range): BP systolic 110–143; PULSE 80–101; RESP 16–18; TEMP 97.5–98.3; O2SAT 92–98
[2024-03-22 07:39] LABS: BASOPHILS % (AUTO) 0.4 % (0.0-2.0); EOSINOPHILS % (AUTO) 1.2 % (0.0-4.0); HEMATOCRIT 42.9 % (36-54); HEMOGLOBIN 14.9 g/dL (14.0-18.0); LYMPHOCYTES # (AUTO) 0.4 K/uL (1.0-5.5); LYMPHOCYTES % (AUTO) 12.2 % (20.5-51.5); MEAN CORPUSCULAR HEMOGLOBIN 39 pg (27-31); MEAN CORPUSCULAR HGB CONC 35 % (32-36); MEAN CORPUSCULAR VOLUME 111 fL (79.0-98.0); MONOCYTES # (AUTO) 0.1 K/uL (0.0-1.0); NEUTROPHILS # (AUTO) 2.5 K/uL (1.8-7.7); NEUTROPHILS % (AUTO) 84.2 % (40.0-70.0); PLATELET COUNT (AUTO) 108 K/uL (130-430); RED BLOOD CELL COUNT(AUTO) 3.85 MIL/uL (4.2-6.2); RED CELL DISTRIBUTION WIDTH 14.6 % (9.0-15.0)
[2024-03-22 08:24] LABS: CALCIUM 8.5 mg/dL (8.4-11.0); CREATININE 0.77 mg/dL (0.55-1.30); POTASSIUM 4.3 mmol/L (3.5-5.1); TOTAL BILIRUBIN 2.1 mg/dL (0.0-1.0); TOTAL PROTEIN, SERUM 6.7 g/dL (6.4-8.3)
[2024-03-22] MEDS: EMPAGLIFLOZIN 10 MG TABLET PO SCH (09:23)
[2024-03-22] MEDS: AZITHROMYCIN 250 MG TABLET PO SCH (09:25)
[2024-03-22] MEDS: ISOSORBIDE MONONITRATE 30 MG TAB.ER.24H PO SCH (09:25)
[2024-03-22] MEDS: DILTIAZEM HCL 120 MG CAP.SR.24H PO SCH (09:28)
[2024-03-22] MEDS ORDERED: ALBUTEROL SULFATE 0.083% 2.5 MG/3 ML VIAL.NEB INH PRN (11:00)
[2024-03-22] MEDS: IPRATROPIUM/ALBUTEROL SULFATE 3 ML AMPUL.NEB (DUONEB) INH SCH (11:41)
[2024-03-23] VITALS: BP_SYST 135; PULSE 79; RESP 18; TEMP 97.3; O2SAT 97
[2024-03-23 07:20] LABS: HEMATOCRIT 44.9 % (36-54); HEMOGLOBIN 15.2 g/dL (14.0-18.0); LYMPHOCYTES # (AUTO) 0.5 K/uL (1.0-5.5); LYMPHOCYTES % (AUTO) 8.1 % (20.5-51.5); MEAN CORPUSCULAR HEMOGLOBIN 38 pg (27-31); MEAN CORPUSCULAR HGB CONC 34 % (32-36); MEAN CORPUSCULAR VOLUME 112 fL (79.0-98.0); MONOCYTES # (AUTO) 0.2 K/uL (0.0-1.0); MONOCYTES % (AUTO) 2.6 % (1.7-9.3); NEUTROPHILS # (AUTO) 5.2 K/uL (1.8-7.7); PLATELET COUNT (AUTO) 120 K/uL (130-430); RED BLOOD CELL COUNT(AUTO) 4.02 MIL/uL (4.2-6.2); WHITE BLOOD COUNT (AUTO) 5.8 K/uL (4.8-10.8)
[2024-03-23 07:21] LABS: CALCIUM 8.9 mg/dL (8.4-11.0); CREATININE 0.83 mg/dL (0.55-1.30); POTASSIUM 3.9 mmol/L (3.5-5.1)
[2024-03-23 07:25] VITALS: O2SAT 88
[2024-03-23 08:23] LABS: ERYTHROCYTE SEDIMENTATION RATE 15 MM/HR (0-15); NEUTROPHILS % (AUTO) 89.3 % (40.0-70.0)
[2024-03-23 09:00] VITALS: O2SAT 92
[2024-03-23] MEDS ORDERED: METH-776 PO (10:03)
[2024-03-23] MEDS ORDERED: DOXY100C PO (10:03)
[2024-03-23 11:07] VITALS: O2SAT 93
[2024-03-23 12:28] VITALS: BP_SYST 108; PULSE 89; RESP 16; TEMP 98.1; O2SAT 99
== END 2024-03-23 16:00 | disposition home or self-care (01) | DRG 189 ==
LOC: SED 23:37 → STU 03-21 02:53
PROVIDERS: ADMIT Preventive Medicine Preventive Medicine/Occupational Environmental Medicine; ATTEND Preventive Medicine Preventive Medicine/Occupational Environmental Medicine
DX: J96.00 Acute respiratory failure, unspecified whether with hypoxia or hypercapnia (principal); J18.9 Pneumonia, unspecified organism; J44.0 Chronic obstructive pulmonary disease with (acute) lower respiratory infection; E87.0 Hyperosmolality and hypernatremia; Z20.822 Contact with and (suspected) exposure to COVID-19; I48.91 Unspecified atrial fibrillation; E11.65 Type 2 diabetes mellitus with hyperglycemia; I10 Essential (primary) hypertension; I25.10 Atherosclerotic heart disease of native coronary artery without angina pectoris; E88.09 Other disorders of plasma-protein metabolism, not elsewhere classified; E80.6 Other disorders of bilirubin metabolism; D69.6 Thrombocytopenia, unspecified; D72.819 Decreased white blood cell count, unspecified; Z90.49 Acquired absence of other specified parts of digestive tract; Z79.01 Long term (current) use of anticoagulants
CPT/HCPCS: 36415; 36600; 71045; 76700; 80048; 80053; 80076; 81001; 81003; 82803; 83605; 85007; 85025; 85027; 85651; 86738; 87040; 87081; 87420; 93005; 94640; 94760; 97116-GP; 99285; G0378; J0456; J0696; J1030; J1815; J7060; Q0144